=== PATIENT | male | born 1980 | race Caucasian/White ===

== ENCOUNTER 2018-11-13 20:54 | Inpatient (IN) | payer MEDICAID ==
[~2018-11-13] VITALS: Ht 182.9 cm; Wt 121.1 kg
[2018-11-13] MEDS: NACL 0.9% 1,000 ML IV SCH (02:00)
[2018-11-13 21:50] VITALS: BP 158/80
[2018-11-13] MEDS ORDERED: VANCOMYCIN 1,000 MG in DEXTROSE 5% 250 ML IV ONE (21:50)
--- NOTE | 2018-11-13 22:17 | NUR ---
PT BIB SELF FOR CELLULITIS TO RT LEG FOR 3 DAYS. PT STATES LEG HAS BEEN GETTING MORE RED SWOLLEN. +CMS. SWELLING TO LOWER EXTREMEITY. BLANCHABLE REDNESS. NO PMH
[2018-11-13] MEDS ORDERED: VANCOMYCIN 1,000 MG VIAL ONE (22:25)
--- NOTE | 2018-11-13 22:25 | NUR ---
PT AMBULATED FROM CHAIR B TO BED 04
[2018-11-13 22:29] LABS: BASOPHILS # (AUTO) 0.1 K/uL (0.00-0.22); BASOPHILS % (AUTO) 0.7 % (0.0-2.0); EOSINOPHILS # (AUTO) 0.1 K/uL (0-0.4); EOSINOPHILS % (AUTO) 1.4 % (0.0-4.0); HEMATOCRIT 43.2 % (36-52); HEMOGLOBIN 14.3 g/dL (12.0-18.0); LYMPHOCYTES # (AUTO) 1.6 K/uL (2.0-11.5); MEAN CORPUSCULAR HEMOGLOBIN 29 pg (27-31); MEAN CORPUSCULAR HGB CONC 33 g/dL (33-37); MEAN CORPUSCULAR VOLUME 86.6 fL (80-94); MONOCYTES # (AUTO) 0.8 K/uL (0.8-1.0); MONOCYTES % (AUTO) 10.7 % (1.7-9.3); NEUTROPHILS # (AUTO) 5.3 K/uL (1.8-7.7); NEUTROPHILS % (AUTO) 67.2 % (42.2-75.2); PLATELET COUNT (AUTO) 215 K/uL (140-450); RED BLOOD CELL COUNT(AUTO) 4.99 MIL/uL (4.20-6.10); RED CELL DISTRIBUTION WIDTH 14.1 % (11.6-13.7); WHITE BLOOD COUNT (AUTO) 7.9 K/uL (4.8-10.8)
[2018-11-13] MEDS ORDERED: MORPHINE SULFATE 2 MG/ML SYR IVP PRN (22:40)
[2018-11-13] MEDS ORDERED: ACETAMINOPHEN 325 MG TAB PO PRN (22:40)
[2018-11-13] MEDS ORDERED: ONDANSETRON 4 MG/2 ML VIAL IM/IVP PRN (22:40)
[2018-11-13] MEDS ORDERED: HYDROcodone/APAP 5/325 MG 1 TAB TAB PO PRN (22:40)
[2018-11-13] MEDS ORDERED: DOCUSATE SODIUM 100 MG GELCAP PO PRN (22:40)
--- NOTE | 2018-11-13 22:49 | NUR ---
xray at bedside
[2018-11-13 22:50] LABS: ALBUMIN 3.4 g/dL (3.4-5.0); ANION GAP 11.1 (8-16); CARBON DIOXIDE 27.6 mmol/L (21-32); POTASSIUM 3.7 mmol/L (3.5-5.1); TOTAL BILIRUBIN 0.4 mg/dL (0.0-1.0)
[2018-11-13] MEDS ORDERED: VANCOMYCIN PER PHARMACY MC PRN (23:05)
[2018-11-13 23:25] LABS: CHOL/HDL RATIO 6.4 (1-4.5); MAGNESIUM 2.1 mg/dL (1.8-2.4); PHOSPHORUS 4.8 mg/dL (2.5-4.9); THYROID STIMULATING HORMONE 1.62 uIU/mL (0.34-3.74)
--- NOTE | 2018-11-13 23:30 | NUR ---
PT RESTING IN BED ON CELL PHONE. VSS. WILL CONTINUE TO MONITOR.
[2018-11-14 00:06] LABS: APPEARANCE,URINE CLEAR (CLEAR); BILIRUBIN,URINE NEGATIVE (NEGATIVE); BLOOD, URINE NEGATIVE (NEGATIVE); COLOR,URINE YELLOW (YELLOW); LEUKOCYTE ESTERASE ,URINE NEGATIVE (NEGATIVE); NITRITE, URINE NEGATIVE (NEGATIVE); UGLUCOSE NEGATIVE (NEGATIVE)
[2018-11-14 00:07] LABS: RBC,URINE 0-5 /HPF (0-5); WBC,URINE 0-5 /HPF (0-5)
[2018-11-14 00:15] LABS: BARBITURATE, URINE NEG. ng/ml (NEG <=200); BENZODIAZEPINE, URINE NEG. ng/mL (NEG <=200); CANNABINOID, URINE NEG. ng/mL (NEG <=50); COCAINE, URINE NEG. ng/mL (NEG <=300); OPIATE, URINE NEG. ng/mL (NEG <=2000); PHENCYCLIDINE SCREEN,URINE NEG. ng/mL (NEG <=25)
--- NOTE | 2018-11-14 00:18 | NUR ---
PT RESTING IN BED WITH EYES CLOSED. VSS. WILL CONTINUE TO MONITOR.
--- NOTE | 2018-11-14 00:18 | NUR ---
Jean Marie canas in ED - 11/14/18 at 0019 by JUAN PT RESTING IN BED WITH EYES CLOSED. VSS. WILL CONTINUE TO MONITOR.
[2018-11-14 00:36] LABS: PROTHROMBIN TIME 9.2 secs (10.8-13.4)
--- NOTE | 2018-11-14 01:10 | NUR ---
RECEIVED REPORT FROM ER NURSE. PT ARRIVED AT WHEELCHAIR, PT TRANSFERRED TO BED, PT AWAKE ALERT COOPERATIVE, PERRLA 3MM, BRISK, PT BREATHING REGULARLY ON ROOM AIR LUNG SOUNDS CLEAR THROUGHOUT, HEART RATE REGULAR S1S2 PRESENT, CAP REFILL <3S, PULSES 2+ BILATERAL UPPER AND LOWER EXTREMITIES, ABDOMEN, SOFT, ROUND, NONDISTENDED, NONTENDER, BLADDER SOFT, ROUND, NONDISTENDED, NONTENDER, STRENGTH 5/5 BILATERAL UPPER AND LOWER EXTREMITIES, PT HAS LEFT AC 20 GAUGE RUNNING NS AT 140 ML/HR. SKIN INTACT, WARM, DRY, PT HAS RIGHT LEG INFLAMMATION AND NONPITTING EDEMA +1, HOB 30 DEGREES, SIDE RAILS UP X2, BED AT LOWEST POSITION.
--- NOTE | 2018-11-14 01:12 | NUR ---
Transfer of care and report given to WILL Hill
--- NOTE | 2018-11-14 01:12 | NUR ---
Patient will be admitted to care of Dr. Manning. Admited to Med Surge. Will go to room 105A. Belongings list completed. Report given to WILL Hill.
[2018-11-14] MEDS ORDERED: PIPERACILLIN/TAZOBACTAM 3.375 GM VIAL IV ONE ×2 (01:50→06:32)
[2018-11-14] MEDS: PIPERACILLIN/TAZOBACTAM 3.375 GM in DEXTROSE 5% 50 ML IV SCH ×2 (02:19→06:41)
--- NOTE | 2018-11-14 04:00 | NUR ---
PT REQUESTED SANDWICH. SANDWICH GIVEN PT SWALLOWED FOOD WITH NO PROBLEMS
[2018-11-14 06:00] VITALS: BP 133/69
[2018-11-14] MEDS: NACL 0.9% 1,000 ML IV SCH ×3 (06:40→20:05)
--- NOTE | 2018-11-14 06:58 | NUR ---
MEDICATIONS GIVEN. PT AT BED EYES CLOSED. BREATHING REGULARLY ON ROOM AIR
[2018-11-14 07:05] LABS: BASOPHILS % (AUTO) 0.5 % (0.0-2.0); EOSINOPHILS # (AUTO) 0.3 K/uL (0-0.4); EOSINOPHILS % (AUTO) 4.3 % (0.0-4.0); HEMOGLOBIN 13.4 g/dL (12.0-18.0); LYMPHOCYTES # (AUTO) 1.4 K/uL (2.0-11.5); MEAN CORPUSCULAR HEMOGLOBIN 29 pg (27-31); MEAN CORPUSCULAR HGB CONC 33 g/dL (33-37); MEAN CORPUSCULAR VOLUME 87.1 fL (80-94); MONOCYTES # (AUTO) 0.9 K/uL (0.8-1.0); MONOCYTES % (AUTO) 13.9 % (1.7-9.3); NEUTROPHILS # (AUTO) 3.6 K/uL (1.8-7.7); NEUTROPHILS % (AUTO) 58.3 % (42.2-75.2); PLATELET COUNT (AUTO) 181 K/uL (140-450); RED BLOOD CELL COUNT(AUTO) 4.71 MIL/uL (4.20-6.10); RED CELL DISTRIBUTION WIDTH 14.3 % (11.6-13.7); WHITE BLOOD COUNT (AUTO) 6.2 K/uL (4.8-10.8)
[2018-11-14 07:15] LABS: ANION GAP 11.1 (8-16); CARBON DIOXIDE 27.5 mmol/L (21-32); CREATININE 0.9 mg/dL (0.7-1.3); POTASSIUM 3.6 mmol/L (3.5-5.1)
[2018-11-14 07:25] LABS: CHOL/HDL RATIO 6.9 (1-4.5)
--- NOTE | 2018-11-14 07:30 | NUR ---
RECEIVED BEDSIDE REPORT FROM AUDIOMETRIST NURSE FOR CONTINUITY OF CARE. PATIENT IS SLEEPING ON BED AND SNORING HEARD, AROUSABLE TO VOICE. RESPIRATION EVEN AND UNLABORED ON RA. NO SIGNS OF DISTRESS NOTED. IV ON LAC 20G, CLEAN AND INTACT, INFUSING PER MD ORDER. REDNESS ON R LOW LEG NOTED, CERTIFIED CODING SPECIALIST AND WARM TO TOUCH, OTHERWISE SKIN INTACT AND DRY. PATIENT IS CONTINENT AND ABLE TO AMBULATE. SAFETY MEASURES IN PLACE. BED IN LOW POSITION AND CALL LIGHT WITHIN REACH.
--- NOTE | 2018-11-14 07:40 | NUR ---
CHANGE OF SHIFT GIVEN TO AM NURSE. PT AT STABLE CONDITION AT THIS TIME.
[2018-11-14 08:00] VITALS: BP 118/76
--- NOTE | 2018-11-14 08:13 | NUR ---
PATIENT HAS BEEN SCREENED AND CATEGORIZED LOW NUTRITION RISK. PATIENT WILL BE SEEN WITHIN 7 DAYS OF ADMISSION. 11/20/[address]
[2018-11-14] MEDS: VANCOMYCIN 1,500 MG in DEXTROSE 5% 500 ML IV SCH ×3 (08:59→23:00)
[2018-11-14] MEDS: LACTOBACILLUS RHAMNOSUS GG 1 EACH CAP PO SCH (08:59)
--- NOTE | 2018-11-14 09:02 | NUR ---
ADMINISTERED MEDS PER MD ORDER, PATIENT TOLERATED WELL. MEDS EDUCATION PROVIDED TO PATIENT AND PATIENT VERBALIZED UNDERSTANDING. PATIENT AWAKE AND RESTING ON BED. DENIED PAIN, SOB AND DIZZINESS. NO SIGNS OF DISTRESS NOTED. DISCUSSED PLAN OF CARE WITH PATIENT AND PATIENT SAID OK. SAFETY MEASURES IN PLACE. BED IN LOW POSITION AND CALL LIGHT WITHIN REACH. INSTRUCTED PATIENT TO USE THE CALL LIGHT FOR ANY ASSISTANCE AND PATIENT WAS AWARE.
--- NOTE | 2018-11-14 11:15 | NUR ---
PATIENT IS RESTING ON BED AT THIS TIME. DENIED PAIN, SOB AND DIZZINESS. NO SIGNS OF DISTRESS NOTED. SAFETY MEASURES IN PLACE. BED IN LOW POSITION AND CALL LIGHT WITHIN REACH. INSTRUCTED PATIENT TO USE THE CALL LIGHT FOR ANY ASSISTANCE AND PATIENT WAS AWARE.
--- NOTE | 2018-11-14 13:17 | NUR ---
HUNG A NEW BAG OF IVF, PATIENT AWAKE AND WATCHING TV ON BED AT THIS TIME. NO SIGNS OF DISTRESS NOTED. SAFETY MEASURES IN PLACE. BED IN LOW POSITION AND CALL LIGHT WITHIN REACH. INSTRUCTED PATIENT TO USE THE CALL LIGHT FOR ANY ASSISTANCE AND PATIENT WAS AWARE.
--- NOTE | 2018-11-14 15:22 | NUR ---
PATIENT IS RESTING ON BED AT THIS TIME. AROUSABLE TO VOICE. EVEN AND UNLABORED CHEST RISES ON RA NOTED. NO SIGNS OF DISTRESS NOTED. SAFETY MEASURES IN PLACE. BED IN LOW POSITION AND CALL LIGHT WITHIN REACH.
--- NOTE | 2018-11-14 15:59 | NUR ---
ADMINISTERED VANCOMYCIN VIA IVPB PER MD ORDER, PATIENT TOLERATED WELL. MED EDUCATION PROVIDED TO PATIENT AND PATIENT VERBALIZED UNDERSTANDING. PATIENT AWAKE AND WATCHING TV ON BED AT THIS TIME. NO SIGNS OF DISTRESS NOTED. SAFETY MEASURES IN PLACE. BED IN LOW POSITION AND CALL LIGHT WITHIN REACH. INSTRUCTED PATIENT TO USE THE CALL LIGHT FOR ANY ASSISTANCE AND PATIENT WAS AWARE.
[2018-11-14 16:00] VITALS: BP 121/71
--- NOTE | 2018-11-14 17:28 | NUR ---
PATIENT AWAKE AND WATCHING TV ON BED. DENIED PAIN, SOB AND DIZZINESS. RESPIRATION EVEN AND UNLABORED ON RA. NO SIGNS OF DISTRESS NOTED. SAFETY MEASURES IN PLACE. BED IN LOW POSITION AND CALL LIGHT WITHIN REACH. INSTRUCTED PATIENT TO USE THE CALL LIGHT FOR ANY ASSISTANCE AND PATIENT SAID OK.
--- NOTE | 2018-11-14 18:45 | NUR ---
PATIENT AWAKE AND TALKING TO BED B PATIENT. NO SIGNS OF DISTRESS NOTED. SAFETY MEASURES IN PLACE. BED IN LOW POSITION AND CALL LIGHT WITHIN REACH.
--- NOTE | 2018-11-14 19:21 | NUR ---
ENDORSED PATIENT AT BEDSIDE TO TOUR AGENT NURSE FOR CONTINUITY OF CARE. PATIENT AWAKE AND TALKING TO VISITORS BY BEDSIDE. NO SIGNS OF DISTRESS NOTED. PATIENT IS IN STABLE CONDITION. SAFETY MEASURES IN PLACE.
--- NOTE | 2018-11-14 19:22 | NUR ---
REPORT RECEIVED FROM AM NURSE AT BEDSIDE. PT IN STABLE CONDITION. AAOX4. INTRODUCED SELF TO PT. BOARD UPDATED. NO COMPLAINTS OF PAIN. NO SOB. AFEBRILE. PT IS AMBULATORY. CELLULITIS AREA MARKED WITH MARKER. IV SITE L AC 20G RUNNING NS@140ML/HR PATENT AND INTACT. SKIN WARM, DRY, AND INTACT WITH NO OPEN WOUNDS BUT RLE REDDENED WITH A BUG BITE. BED LOCKED IN LOW POSITION. CALL BARTLETT WITHIN REACH. SAFETY PRECAUTION IN PLACE. ALL NEEDS MET AT THIS TIME.
--- NOTE | 2018-11-14 20:08 | NUR ---
HEPARIN GIVEN SUBQ. PT TOLERATED WELL.
--- NOTE | 2018-11-14 22:00 | NUR ---
PT SLEEPING COMFORTABLY BUT AROUSABLE. NO S/S OF DISTRESS NOTED. WILL CONTINUE TO MONITOR.
--- NOTE | 2018-11-14 23:00 | NUR ---
BECKI NAVARRO AND RUNNING. PT TOLERATING WELL.
[2018-11-15] VITALS: BP 132/73
--- NOTE | 2018-11-15 01:30 | NUR ---
PT SLEEPING COMFORTABLY BUT AROUSABLE. NO S/S OF DISTRESS NOTED. NO COMPLAINTS OF PAIN. NO SOB. AFEBRILE. WILL CONTINUE TO MONITOR.
--- NOTE | 2018-11-15 03:00 | NUR ---
PT SLEEPING COMFORTABLY BUT AROUSABLE. NO S/S OF DISTRESS NOTED. NO COMPLAINTS OF PAIN. NO SOB. AFEBRILE. WILL CONTINUE TO MONITOR.
[2018-11-15] MEDS: NACL 0.9% 1,000 ML IV SCH ×3 (03:14→18:15)
[2018-11-15 06:08] LABS: T4 (THYROXINE) 11.2 ug/dL (4.5-12.0)
--- NOTE | 2018-11-15 07:12 | NUR ---
RECEIVED BEDSIDE REPORT FROM CLINICAL PHARMACIST NURSE FOR CONTINUITY OF CARE. PATIENT IS SLEEPING ON BED COMFORTABLY, AROUSABLE TO VOICE. RESPIRATION EVEN AND UNLABORED ON RA. NO SIGNS OF DISTRESS NOTED. IV ON LAC 20G, CLEAN AND INTACT, INFUSING PER MD ORDER. REDNESS ON R LOW LEG NOTED, ANALYTICAL STATISTICIAN AND WARM TO TOUCH, OTHERWISE SKIN INTACT AND DRY. PATIENT IS CONTINENT AND ABLE TO AMBULATE. SAFETY MEASURES IN PLACE. BED IN LOW POSITION AND CALL LIGHT WITHIN REACH.
[2018-11-15 07:28] LABS: BASOPHILS % (AUTO) 0.5 % (0.0-2.0); EOSINOPHILS # (AUTO) 0.3 K/uL (0-0.4); EOSINOPHILS % (AUTO) 4.7 % (0.0-4.0); HEMATOCRIT 40.4 % (36-52); HEMOGLOBIN 13.3 g/dL (12.0-18.0); LYMPHOCYTES # (AUTO) 1.6 K/uL (2.0-11.5); LYMPHOCYTES % (AUTO) 26.5 % (20.5-51.1); MEAN CORPUSCULAR HEMOGLOBIN 29 pg (27-31); MEAN CORPUSCULAR HGB CONC 33 g/dL (33-37); MEAN CORPUSCULAR VOLUME 86.8 fL (80-94); MONOCYTES # (AUTO) 0.6 K/uL (0.8-1.0); MONOCYTES % (AUTO) 10.7 % (1.7-9.3); NEUTROPHILS # (AUTO) 3.4 K/uL (1.8-7.7); NEUTROPHILS % (AUTO) 57.6 % (42.2-75.2); PLATELET COUNT (AUTO) 194 K/uL (140-450); RED BLOOD CELL COUNT(AUTO) 4.66 MIL/uL (4.20-6.10); RED CELL DISTRIBUTION WIDTH 14.2 % (11.6-13.7); WHITE BLOOD COUNT (AUTO) 5.9 K/uL (4.8-10.8)
[2018-11-15 08:00] VITALS: BP 129/72
[2018-11-15 08:06] LABS: CARBON DIOXIDE 28.1 mmol/L (21-32); POTASSIUM 4.1 mmol/L (3.5-5.1)
[2018-11-15 08:07] LABS: CREATININE 0.8 mg/dL (0.7-1.3)
[2018-11-15] MEDS: LACTOBACILLUS RHAMNOSUS GG 1 EACH CAP PO SCH (08:31)
--- NOTE | 2018-11-15 08:35 | NUR ---
ADMINISTERED MEDS PER MD ORDER, PATIENT TOLERATED WELL. MED EDUCATION PROVIDED TO PATIENT AND PATIENT VERBALIZED UNDERSTANDING. PATIENT AWAKE AND RESTING ON BED AT THIS TIME. DENIED PAIN, SOB AND DIZZINESS. NO SIGNS OF DISTRESS NOTED. SAFETY MEASURES IN PLACE. BED IN LOW POSITION AND CALL LIGHT WITHIN REACH. INSTRUCTED PATIENT TO USE THE CALL LIGHT FOR ANY ASSISTANCE AND PATIENT WAS AWARE.
--- NOTE | 2018-11-15 08:39 | NUR ---
AWAITING FOR VANCOMYCIN TROUGH RESULT TO [facility]ANG VANCOMYCIN.
[2018-11-15] MEDS: VANCOMYCIN 1,500 MG in DEXTROSE 5% 500 ML IV SCH ×2 (09:09→15:50)
--- NOTE | 2018-11-15 09:09 | NUR ---
RECEIVED VANCOMYCIN TROUGH RESULT 12.9 AND VERIFIED WITH PAHARMACIST THAT IT'S OK TO ADMINISTER AM DOSE. ADMINISTERED MED PER MD ORDER, PATIENT IS RESTING ON BED AT THIS TIME. DENIED PAIN, SOB AND DIZZINESS. NO SIGNS OF DISTRESS NOTED. SAFETY MEASURES IN PLACE. BED IN LOW POSITION AND CALL LIGHT WITHIN REACH. INSTRUCTED PATIENT TO USE THE CALL LIGHT FOR ANY ASSISTANCE AND PATIENT WAS AWARE.
[2018-11-15 10:42] LABS: PHOSPHORUS 3.7 mg/dL (2.5-4.9)
--- NOTE | 2018-11-15 11:44 | NUR ---
PATIENT IS AWAKE AND WATCHING TV ON BED AT THIS TIME. DENIED PAIN, SOB AND DIZZINESS. NO SIGNS OF DISTRESS NOTED. SAFETY MEASURES IN PLACED. BED IN LOW POSITION AND CALL LIGHT WITHIN REACH. INSTRUCTED PATIENT TO USE THE CALL LIGHT FOR ANY ASSISTANCE AND PATIENT WAS AWARE.
--- NOTE | 2018-11-15 13:45 | NUR ---
PATIENT IS RESTING ON BED AT THIS TIME. NO SIGNS OF DISTRESS NOTED. SAFETY MEASURES IN PLACE. BED IN LOW POSITION AND CALL LIGHT WITHIN REACH.
--- NOTE | 2018-11-15 15:50 | NUR ---
ADMINISTERED VANCOMYCIN VIA IVPB PER MD ORDER, PATIENT IS AWAKE AND RESTING ON BED AT THIS TIME. DENIED PAIN, SOB AND DIZZINESS. NO SIGNS OF DISTRESS NOTED. SAFETY MEASURES IN PLACE. BED IN LOW POSITION AND CALL LIGHT WITHIN REACH. INSTRUCTED PATIENT TO USE THE CALL LIGHT FOR ANY ASSISTANCE AND PATIENT WAS AWARE.
[2018-11-15 16:00] VITALS: BP 138/71
--- NOTE | 2018-11-15 17:18 | NUR ---
PATIENT IS AWAKE AND WATCHING TV ON BED AT THIS TIME. PATIENT SAID "I MIGHT WALK AROUND THE HALLWAY AFTER DINNER. I FEEL LIKE WALK AROUND." DENIED PAIN, SOB AND DIZZINESS. NO SIGNS OF DISTRESS NOTED. SAFETY MEASURES IN PLACED. BED IN LOW POSITION AND CALL LIGHT WITHIN REACH. INSTRUCTED PATIENT TO USE THE CALL LIGHT FOR ANY ASSISTANCE AND PATIENT WAS AWARE.
--- NOTE | 2018-11-15 18:15 | NUR ---
PATIENT AWAKE AND WATCHING TV ON BED AT THIS TIME. NO SIGNS OF DISTRESS NOTED. SAFETY MEASURES IN PLACE. BED IN LOW POSITION AND CALL LIGHT WITHIN REACH. INSTRUCTED PATIENT TO USE THE CALL LIGHT FOR ANY ASSISTANCE AND PATIENT WAS AWARE.
--- NOTE | 2018-11-15 19:17 | NUR ---
ENDORSED PATIENT AT BEDSIDE TO PIPE BUFFER NURSE FOR CONTINUITY OF CARE. PATIENT IS RESTING ON BED, AROUDABLE TO VOICE. EVEN AND UNLABORED CHEST RISES ON RA NOTED. NO SIGNS OF DISTRESS NOTED. PATIENT IS IN STABLE CONDITION. SAFETY MEASURES IN PLACE.
--- NOTE | 2018-11-15 19:18 | NUR ---
RECEIVED BEDSIDE REPORT FROM SIDE FRAMER NURSE FOR CONTINUITY OF CARE. PATIENT IS SLEEPING ON BED COMFORTABLY, AROUSABLE TO VOICE. RESPIRATION EVEN AND UNLABORED ON RA. NO SIGNS OF DISTRESS NOTED. IV ON LAC 20G, CLEAN AND INTACT, INFUSING PER MD ORDER. CELLULITIS ON R LOWER LEG NOTED, REDNESS NOTED, WARM TO TOUCH, OTHERWISE SKIN INTACT AND DRY. PATIENT IS CONTINENT AND ABLE TO AMBULATE. SAFETY MEASURES IN PLACE. BED IN LOW POSITION AND CALL LIGHT WITHIN REACH.
[2018-11-15 20:00] VITALS: BP 134/64
--- NOTE | 2018-11-15 22:15 | NUR ---
PT WENT TO THE BATHROOM, VOIDED; STEADY GAIT WILL CONTINUE TO MONITOR
[2018-11-16] MEDS: VANCOMYCIN 1,500 MG in DEXTROSE 5% 500 ML IV SCH ×2 (00:13→09:47)
--- NOTE | 2018-11-16 00:13 | NUR ---
PT GIVEN VANCOMYCIN INFORMED HIM SIDE EFFECTS, PT VERBALIZED UNDERSTANDING
[2018-11-16] MEDS: NACL 0.9% 1,000 ML IV SCH ×2 (00:41→07:33)
--- NOTE | 2018-11-16 01:11 | NUR ---
PT SLEEPING ON BED COMFORTABLY, NO COMPLAINTS OF PAIN WILL CONTINUE TO MONITOR
--- NOTE | 2018-11-16 02:00 | NUR ---
CHECKED ON PATIENT; NO COMPLAINTS AT THISTIME
[2018-11-16 04:00] VITALS: BP 135/65
--- NOTE | 2018-11-16 07:04 | NUR ---
AWAKE, ALERT ORIENTED X 4. AMBULATORY PT IN STABLE CONDITION AT THIS TIME. NO COMPLAINTS OF PAIN
--- NOTE | 2018-11-16 07:15 | NUR ---
RECEIVED PT FROM DRIVER TRAINEE NURSEGIANCARLO, PT IS ASLEEP AND LYING ON THE BED WITH AN IV LINE ON THE LEFT AC G.20 AND IVF IS NS AT 140ML/HR, RESPIRATION IS EVEN AND SIDE RIALS ARE UP AND CALL LIGHT WITHIN REACH, PT HAS A RT LEG CELLULITIS, MARKED AND NOTED, NO SIGN OF DISTRESS NOTED AND WILL MONITOR PT.
[2018-11-16 07:51] LABS: ANION GAP 14.6 (8-16); CARBON DIOXIDE 26.4 mmol/L (21-32); CREATININE 0.8 mg/dL (0.7-1.3)
[2018-11-16] MEDS: LACTOBACILLUS RHAMNOSUS GG 1 EACH CAP PO SCH (09:47)
--- NOTE | 2018-11-16 09:53 | NUR ---
PT IS AWAKE AND LYING ON THE BED, SUBQ, IV AND ORAL MEDICATIONS WERE GIVEN AND PT TOLERATED IT. WILL MONITOR PT.
[2018-11-16] MEDS ORDERED: CLIN-178 PO ×2 (10:17→10:46)
[2018-11-16] MEDS ORDERED: LACT1.4C PO ×2 (10:17→10:46)
--- NOTE | 2018-11-16 13:15 | NUR ---
DISCHARGED PT ACCOMPANIED BY FRIEND ,WALKED THROUGH THE LOBBY, DISCHARGED TEACHINGS, MEDICATION INSTRUCTION AND APPOINTMENT SCHEDULED ON AT 1330 WAS REMINDED TO THE PT AND PT VERBALIZED UNDERSTANDING.
== END 2018-11-16 13:15 | disposition home or self-care (01) | DRG 720 ==
LOC: MED 20:54 → MTU 22:42
PROVIDERS: ADMIT Family Medicine; ATTEND Family Medicine
DX: A41.9 Sepsis, unspecified organism (principal); E87.1 Hypo-osmolality and hyponatremia; L03.115 Cellulitis of right lower limb; E66.9 Obesity, unspecified; I10 Essential (primary) hypertension; F15.10 Other stimulant abuse, uncomplicated; F17.210 Nicotine dependence, cigarettes, uncomplicated; E78.5 Hyperlipidemia, unspecified; T43.625A Adverse effect of amphetamines, initial encounter; B95.5 Unspecified streptococcus as the cause of diseases classified elsewhere; B95.61 Methicillin susceptible Staphylococcus aureus infection as the cause of diseases classified elsewhere; Z68.36 Body mass index [BMI] 36.0-36.9, adult; Y92.89 Other specified places as the place of occurrence of the external cause
CPT/HCPCS: 36415; 71045; 80048; 80053; 80202; 80305; 81001; 82150; 83036; 83605; 83690; 83735; 83880; 84100; 84436; 84443; 84484; 85025; 85610; 85730; 87040; 87081; 87086; 99285; J1644; J2543; J3370; J7030; J7060

== ENCOUNTER 2019-03-06 18:37 | Inpatient (IN) | payer MEDICAID, OTHER ==
[~2019-03-06] VITALS: Ht 182.9 cm; Wt 131.5 kg
[~2019-03-06 18:37] MED LIST: CLIN-178 PO; LACT1.4C PO
[2019-03-06 18:55] VITALS: BP 136/77
--- NOTE | 2019-03-06 18:59 | NUR ---
PT AMB TO BED 10
--- NOTE | 2019-03-06 19:03 | NUR ---
Patient ambulated to bed 6. RN evaluating patient at bedside.
--- NOTE | 2019-03-06 19:07 | NUR ---
38 Y/O MALE C/O CELLULITIS X LAST NIGHT. PATIENT STATES, " I THINK I GOT BITTEN BY A SPIDER BECAUSE MY MOTHER NOTICED LITTLE RED DOTS LAST NIGHT AND THIS MORNING, MY FOOT AND LEG WAS COMPLETELY SWOLLEN." PAIN IS A 10/10 BURNING, THROBBING PAIN. RIGHT FOOT EXHIBITS RED; SWOLLEN EDEMATOUS COMPARED TO THE LEFT FOOT.; NONPITTING; <3 CAPILLARY REFILL. +2 SECONDS PEDAL PULSES. ERMD MADE AWARE. SIDE RAILSX1. WILL CONTINUE TO MONITOR. H- SHERMAN WAS ADMITTED IN NOVEMBER FOR SAME LEG CELLULITIS RX:SHERMAN NKDA
--- NOTE | 2019-03-06 19:07 | NUR ---
REPORT GIVEN TO JENNIFER SOLIS
[2019-03-06] MEDS ORDERED: NACL 0.9% 1,000 ML IV SCH (19:47)
[2019-03-06] MEDS ORDERED: AMPICILLIN/SULBACTAM 3 GM in NACL 0.9% MINI-BAG PLUS 100 ML IV ONE (19:50)
[2019-03-06] MEDS ORDERED: KETOROLAC 30 MG/ML VIAL IVP ONE (19:50)
[2019-03-06] MEDS ORDERED: AMPICILLIN/SULBACTAM 3 GM VIAL ONE (19:56)
--- NOTE | 2019-03-06 20:19 | NUR ---
PLACED IV 22 GAUGE RIGHT AC. NORMAL SALINE 1000ML RUNNING.
[2019-03-06 20:25] LABS: BASOPHILS % (AUTO) 0.3 % (0.0-2.0); EOSINOPHILS % (AUTO) 0.5 % (0.0-4.0); HEMATOCRIT 42.8 % (36-52); HEMOGLOBIN 14.2 g/dL (12.0-18.0); LYMPHOCYTES # (AUTO) 0.7 K/uL (2.0-11.5); MEAN CORPUSCULAR HEMOGLOBIN 29 pg (27-31); MEAN CORPUSCULAR HGB CONC 33 g/dL (33-37); MEAN CORPUSCULAR VOLUME 86.6 fL (80-94); MONOCYTES # (AUTO) 0.6 K/uL (0.8-1.0); MONOCYTES % (AUTO) 5.5 % (1.7-9.3); NEUTROPHILS # (AUTO) 8.8 K/uL (1.8-7.7); NEUTROPHILS % (AUTO) 86.7 % (42.2-75.2); PLATELET COUNT (AUTO) 136 K/uL (140-450); RED BLOOD CELL COUNT(AUTO) 4.94 MIL/uL (4.20-6.10); RED CELL DISTRIBUTION WIDTH 14.2 % (11.6-13.7); WHITE BLOOD COUNT (AUTO) 10.1 K/uL (4.8-10.8)
[2019-03-06 20:37] LABS: ANION GAP 11.5 (8-16); CARBON DIOXIDE 27.2 mmol/L (21-32); POTASSIUM 3.7 mmol/L (3.5-5.1)
--- NOTE | 2019-03-06 21:33 | NUR ---
NOTED RASH ON RIGHT LEG. DR. LEMUS MADE AWARE.
--- NOTE | 2019-03-06 21:33 | NUR ---
DR. LEMUS AT BEDSIDE.
[2019-03-06] MEDS ORDERED: ACETAMINOPHEN 325 MG TAB PO PRN (21:40)
[2019-03-06] MEDS ORDERED: ONDANSETRON 4 MG/2 ML VIAL IM/IVP PRN (21:40)
[2019-03-06] MEDS ORDERED: HYDROcodone/APAP 5/325 MG 1 TAB TAB PO PRN (21:40)
[2019-03-06] MEDS ORDERED: DOCUSATE SODIUM 100 MG GELCAP PO PRN (21:40)
[2019-03-06] MEDS ORDERED: diphenhydrAMINE 50 MG/ML VIAL IVP SCH (21:50)
[2019-03-06] MEDS ORDERED: CLINDAMYCIN 600 MG/4 ML VIAL ONE (21:57)
[2019-03-06] MEDS ORDERED: diphenhydrAMINE 50 MG/ML VIAL ONE (21:57)
--- NOTE | 2019-03-06 22:19 | NUR ---
ADMINISTERED BENADRYL 50MG VIA IVP. Addendum: 03/06/19 at [address] LEMUS'S FLOOR ORDERS
--- NOTE | 2019-03-06 22:19 | NUR ---
ADMINISTERED CLEOCIN 600MG WITH DEXTROSE 5% IN 50ML; RATE 100ML VIA IVP. PER DR. LEMUS'S FLOOR ORDERS. WILL CONTINUE TO MONITOR.
[2019-03-06 22:28] LABS: MAGNESIUM 2.2 mg/dL (1.8-2.4); PHOSPHORUS 2.5 mg/dL (2.5-4.9); THYROID STIMULATING HORMONE 2.21 uIU/mL (0.34-3.74)
[2019-03-06 22:41] LABS: PROTHROMBIN TIME 9.5 secs (10.8-13.4)
[2019-03-06 22:53] LABS: TOTAL BILIRUBIN 0.3 mg/dL (0.0-1.0)
[2019-03-06] MEDS ORDERED: MULTIVITAMIN-12 10 ML in NACL 0.9% 1,000 ML IV SCH (23:01)
[2019-03-06 23:03] LABS: BILIRUBIN,DIRECT 0.1 mg/dL (0.0-0.3)
[2019-03-06] MEDS ORDERED: LORazepam 2 MG/ML VIAL IVP PRN (23:05)
[2019-03-06 23:15] VITALS: BP 114/57
--- NOTE | 2019-03-06 23:15 | NUR ---
Patient will be admitted to care of DR. CALLE. Admited to TELE. Will go to room 105 B. Belongings list completed. Report to WILL YANCEY.
--- NOTE | 2019-03-06 23:30 | NUR ---
RECEIVED PT FROM ER WITH THE DX OF RT LOWER LEG CELLULITIS,SWELLING AND REDDNESS PRESENT,PT ALERT AND ORIENTED X 4 CAME FROM HOME,RESP EVEN AND EASY SATS 98% IN ROOM AIR,VITAL SIGN WNL, DENIES ANY PAIN AT THIS TIME, SR ON TEXTILE KNITTER, NS@160CC/HR STARTED ON LT AC, INTACT AND PATENT, LEVAQUIN IVPB GIVEN, CALL LIGHT ON REACH.
[2019-03-06] MEDS ORDERED: MAG SULF 2000 MG/WATER PREMIX 50 ML IV SCH (23:45)
[2019-03-06] MEDS: FOLIC ACID 5 MG/ML SYR IV SCH (23:45)
[2019-03-06] MEDS ORDERED: THIAMINE 200 MG/2 ML VIAL IM SCH (23:55)
[2019-03-07] MEDS: NACL 0.9% 1,000 ML IV SCH ×3 (00:11→17:31)
--- NOTE | 2019-03-07 00:30 | NUR ---
INSTRUCTED PT HE NEED FOR URINE SPECIMEN. URINAL PROVIDED. VERBALIZED UNDERSTANDING.
[2019-03-07] MEDS: LEVOFLOXACIN 500 MG/D5W PREMIX 100 ML IV SCH ×2 (00:35→20:44)
[2019-03-07] MEDS: chlordiazePOXIDE 25 MG CAP PO SCH ×5 (00:36→23:26)
[2019-03-07] MEDS: CLINDAMYCIN 600 MG in DEXTROSE 5% 50 ML IV SCH ×5 (00:49→23:27)
--- NOTE | 2019-03-07 02:30 | NUR ---
MADE ROUNDS. PT ASLEEP. NO S/S OF ANY PAIN NOR DISCOMFORT NOTED.
[2019-03-07 05:00] VITALS: BP 116/70
[2019-03-07] MEDS ORDERED: CLINDAMYCIN 600 MG/4 ML VIAL ONE (05:44)
[2019-03-07 07:22] LABS: BASOPHILS % (AUTO) 0.4 % (0.0-2.0); EOSINOPHILS # (AUTO) 0.1 K/uL (0-0.4); EOSINOPHILS % (AUTO) 1.2 % (0.0-4.0); HEMOGLOBIN 12.6 g/dL (12.0-18.0); LYMPHOCYTES # (AUTO) 0.8 K/uL (2.0-11.5); LYMPHOCYTES % (AUTO) 11.2 % (20.5-51.1); MEAN CORPUSCULAR HEMOGLOBIN 29 pg (27-31); MEAN CORPUSCULAR HGB CONC 33 g/dL (33-37); MEAN CORPUSCULAR VOLUME 86.9 fL (80-94); MONOCYTES # (AUTO) 0.5 K/uL (0.8-1.0); MONOCYTES % (AUTO) 6.6 % (1.7-9.3); NEUTROPHILS # (AUTO) 5.8 K/uL (1.8-7.7); NEUTROPHILS % (AUTO) 80.6 % (42.2-75.2); PLATELET COUNT (AUTO) 119 K/uL (140-450); RED BLOOD CELL COUNT(AUTO) 4.38 MIL/uL (4.20-6.10); RED CELL DISTRIBUTION WIDTH 13.9 % (11.6-13.7); WHITE BLOOD COUNT (AUTO) 7.2 K/uL (4.8-10.8)
[2019-03-07 07:34] LABS: ANION GAP 10.1 (8-16); CARBON DIOXIDE 24.7 mmol/L (21-32); CREATININE 0.9 mg/dL (0.7-1.3); POTASSIUM 3.8 mmol/L (3.5-5.1)
--- NOTE | 2019-03-07 07:34 | NUR ---
PT JUST VOIDED. SPECIMEN AT BEDSIDE. AM NURSE AWARE. WILL SEND TO LAB. ENDORSED PT IN STABLE CONDITION TO AM NURSE.
--- NOTE | 2019-03-07 07:39 | NUR ---
RECEIVED BEDSIDE REPORT FROM NIGHTSHIFT NURSE. PT RESTING IN BED. ABLE TO MAKE NEEDS KNOWN. RESPIRATIONS EVEN AND UNLABORED WITH NO SOB OR RESPIRATORY DISTRESS. SKIN WARM AND DRY TO TOUCH. IV SITE IN LAC 22G IS CLEAN, DRY, AND INTACT. SAFETY MEASURES IN PLACE. WILL CONTINUE TO MONITOR
[2019-03-07 08:00] VITALS: BP 148/82
--- NOTE | 2019-03-07 08:02 | NUR ---
PATIENT HAS BEEN SCREENED AND CATEGORIZED MODERATE NUTRITION RISK. PATIENT WILL BE SEEN WITHIN 3-5 DAYS OF ADMISSION. 03/09/19 03/11/[address]
[2019-03-07] MEDS: FAMOTIDINE 20 MG/2 ML VIAL IV SCH ×2 (08:22→20:44)
--- NOTE | 2019-03-07 08:22 | NUR ---
ADMINISTERED SCHED MED PRESCRIBED PER MD ORDER. PT TOLERATED WELL. MEDICATION EDUCATION PERFORMED. PT VERBALIZED UNDERSTANDING. SAFETY MEASURES IN PLACE. WILL CONTINUE TO MONITOR
[2019-03-07 08:24] LABS: PHOSPHORUS 2.3 mg/dL (2.5-4.9)
[2019-03-07 08:48] LABS: CHOL/HDL RATIO 17.7 (1-4.5)
[2019-03-07] MEDS ORDERED: FOLIC ACID 1 MG TAB PO SCH (09:00)
[2019-03-07] MEDS ORDERED: ATORVASTATIN 20 MG TAB PO SCH (09:00)
[2019-03-07] MEDS ORDERED: MULTIVITAMIN 1 TAB PO SCH (09:00)
[2019-03-07] MEDS ORDERED: THIAMINE 100 MG TAB PO SCH (09:00)
[2019-03-07] MEDS ORDERED: LACTOBACILLUS RHAMNOSUS GG 1 EACH CAP PO SCH (09:00)
[2019-03-07] MEDS ORDERED: MULTIVITAMIN-12 10 ML, THIAMINE 100 MG, MAGNESIUM SULFATE 50% 2,000 MG, FOLIC ACID 1 MG... IV SCH ×5 (10:00)
[2019-03-07 10:04] LABS: APPEARANCE,URINE CLEAR (CLEAR); BILIRUBIN,URINE NEGATIVE (NEGATIVE); BLOOD, URINE TRACE-I (NEGATIVE); COLOR,URINE YELLOW (YELLOW); LEUKOCYTE ESTERASE ,URINE NEGATIVE (NEGATIVE); NITRITE, URINE NEGATIVE (NEGATIVE); UGLUCOSE NEGATIVE (NEGATIVE)
--- NOTE | 2019-03-07 10:16 | NUR ---
HOURLY ROUNDING. PT RESTING IN BED UPON ARRIVAL. ABLE TO MAKE NEEDS KNOWN. RESPIRATIONS EVEN AND UNLABORED WITH NO SOB OR RESPIRATORY DISTRESS. SKIN WARM AND DRY TO TOUCH. SAFETY MEASURES IN PLACE. WILL CONTINUE TO MONITOR
[2019-03-07 10:35] LABS: BARBITURATE, URINE NEG. ng/ml (NEG <=200); BENZODIAZEPINE, URINE NEG. ng/mL (NEG <=200); CANNABINOID, URINE NEG. ng/mL (NEG <=50); COCAINE, URINE NEG. ng/mL (NEG <=300); OPIATE, URINE NEG. ng/mL (NEG <=2000); PHENCYCLIDINE SCREEN,URINE NEG. ng/mL (NEG <=25)
[2019-03-07 10:59] LABS: RBC,URINE 0-5 /HPF (0-5); WBC,URINE 0-5 /HPF (0-5)
--- NOTE | 2019-03-07 11:30 | NUR ---
ADMINISTERED MEDICATION PRESCRIBED PER MD ORDER. PT TOLERATED WELL. MEDICATION EDUCATION PERFORMED. SAFETY MEASURES IN PLACE.
--- NOTE | 2019-03-07 12:52 | NUR ---
ADMINISTERED MEDICATION PRESCRIBED PER MD ORDER. PT TOLERATED WELL. MEDICATION EDUCATION PERFORMED. SAFETY MEASURES IN PLACE.
[2019-03-07] MEDS ORDERED: SODIUM PHOSPHATE 15 MMOLE in NACL 0.9% 250 ML IV ONE (15:35)
[2019-03-07 16:00] VITALS: BP 121/56
--- NOTE | 2019-03-07 16:30 | NUR ---
PT ASLEEP. RESPONSIVE TO VERBAL AND TACTILE STIMULI. ABLE TO MAKE NEEDS KNOWN. RESPIRATIONS EVEN AND UNLABORED WITH NO SOB OR RESPIRATORY DISTRESS. SKIN WARM AND DRY TO TOUCH. SAFETY MEASURES IN PLACE. WILL CONTINUE TO MONITOR
[2019-03-07] MEDS ORDERED: chlordiazePOXIDE 25 MG CAP ONE (17:12)
--- NOTE | 2019-03-07 19:10 | NUR ---
RECEIVED BEDSIDE REPORT FROM DAY SHIFT NURSE. PATIENT IS AWAKE, ALERT, AND COOPERATIVE. RESPIRATION EVEN UNLABORED ON ROOM AIR. NO DISTRESS NOTED. SKIN IS WARM AND DRY. RIGHT LOWER LEG CELLULITIS NOTED. IV PATENT AND INTACT. PLAN OF CARE WAS DISCUSSED. ALL SAFETY MEASURES IN PLACE. BED IS AT LOW POSITION. CALL LIGHT WITHIN REACH AND VERBALIZES ITS USE. WILL CONTINUE TO MONITOR.
--- NOTE | 2019-03-07 19:25 | NUR ---
ENDORSED AT BEDSIDE TO NIGHTSHIFT NURSE. PT RESTING IN BED. RESPIRATIONS EVEN AND UNLABORED WITH NO SOB OR RESPIRATORY DISTRESS. PT IS STABLE.
--- NOTE | 2019-03-07 20:05 | NUR ---
INITIAL ASSESSMENT DONE. RIGHT LEG CELLULITIS NOTED INSTRUCT PATIENT TO ELEVATE HIS FOOT TO REDUCE SWELLING. VITALS WERE TAKEN. PATIENT IN STABLE CONDITION. NO DISTRESS NOTED. WILL CONTINUE TO MONITOR.
--- NOTE | 2019-03-07 20:45 | NUR ---
ALL SCHEDULED MEDS WERE GIVEN PER ORDER. PATIENT COMPLAINED OF LEG PAIN 09/16. PRN PAIN MED ADMINISTERED PER ORDER. WILL CONTINUE TO MONITOR.
--- NOTE | 2019-03-07 22:30 | NUR ---
CHECKED PATIENT. PATIENT SLEEPING RESPIRATION EVEN UNLABORED ON ROOM AIR. NO DISTRESS NOTED. WILL CONTINUE TO MONITOR.
[2019-03-07] MEDS: FOLIC ACID 5 MG/ML SYR IV SCH (23:26)
[2019-03-08] VITALS: BP 117/79
--- NOTE | 2019-03-08 00:01 | NUR ---
VITALS WERE TAKEN. PATIENT IN STABLE CONDITION. ALL SCHEDULED MEDS WERE GIVEN PER ORDER. WILL CONTINUE TO MONITOR.
--- NOTE | 2019-03-08 01:33 | NUR ---
PATIENT ACCIDENTALLY PULLED HIS IV. NO ACTIVE BLEEDING SEEN. CANULA TIP INTACT. WILL CONTINUE TO MONITOR.
--- NOTE | 2019-03-08 04:00 | NUR ---
CHECKED PATIENT. PATIENT IS SLEEPING RESPIRATION EVEN UNLABORED ON ROOM AIR. NO DISTRESS NOTED. WILL CONTINUE TO MONITOR.
[2019-03-08] MEDS: NACL 0.9% 1,000 ML IV SCH (04:31)
[2019-03-08] MEDS: CLINDAMYCIN 600 MG in DEXTROSE 5% 50 ML IV SCH (05:08)
[2019-03-08] MEDS: chlordiazePOXIDE 25 MG CAP PO SCH (05:09)
--- NOTE | 2019-03-08 06:56 | NUR ---
ENDORSED PATIENT TO DAY SHIFT NURSE. PATIENT IN STABLE CONDITION.
--- NOTE | 2019-03-08 07:01 | NUR ---
RECEIVED BEDSIDE REPORT FROM NIGHTSHIFT NURSE. PT ASLEEP IN BED UPON ARRIVAL. RESPIRATIONS EVEN AND UNLABORED WITH NO SOB OR RESPIRATORY DISTRESS. ABLE TO MAKE NEEDS KNOWN. SKIN WARM AND DRY TO TOUCH. IV SITE IN LAC 22G IS CLEAN, DRY, AND INTACT. SAFETY MEASURES IN PLACE. WILL CONTINUE TO MONITOR.
[2019-03-08 07:14] LABS: BASOPHILS # (AUTO) 0.1 K/uL (0.00-0.22); BASOPHILS % (AUTO) 1.1 % (0.0-2.0); EOSINOPHILS # (AUTO) 0.1 K/uL (0-0.4); HEMATOCRIT 37.4 % (36-52); HEMOGLOBIN 12.4 g/dL (12.0-18.0); LYMPHOCYTES # (AUTO) 1.2 K/uL (2.0-11.5); LYMPHOCYTES % (AUTO) 16.7 % (20.5-51.1); MEAN CORPUSCULAR HEMOGLOBIN 29 pg (27-31); MEAN CORPUSCULAR HGB CONC 33 g/dL (33-37); MEAN CORPUSCULAR VOLUME 86.8 fL (80-94); MONOCYTES # (AUTO) 0.7 K/uL (0.8-1.0); MONOCYTES % (AUTO) 9.6 % (1.7-9.3); NEUTROPHILS % (AUTO) 71.6 % (42.2-75.2); PLATELET COUNT (AUTO) 149 K/uL (140-450); RED BLOOD CELL COUNT(AUTO) 4.31 MIL/uL (4.20-6.10); RED CELL DISTRIBUTION WIDTH 14.3 % (11.6-13.7)
[2019-03-08 07:24] LABS: MAGNESIUM 2.1 mg/dL (1.8-2.4); PHOSPHORUS 3.8 mg/dL (2.5-4.9)
[2019-03-08 08:00] VITALS: BP 112/63
--- NOTE | 2019-03-08 08:15 | NUR ---
PT IS AWARE OF DISCHARGE AND WANTS TO GO HOME AROUND 9AM.
[2019-03-08] MEDS ORDERED: CLIN-178 PO (08:17)
[2019-03-08] MEDS ORDERED: ASCO1CAP75 PO (08:20)
[2019-03-08] MEDS ORDERED: LEVO750T2 PO (08:20)
[2019-03-08 08:48] LABS: ANION GAP 14.1 (8-16); CREATININE 0.8 mg/dL (0.7-1.3); POTASSIUM 4.1 mmol/L (3.5-5.1)
[2019-03-08 08:58] VITALS: BP 136/78
--- NOTE | 2019-03-08 09:15 | NUR ---
WENT OVER DC INSTRUCTIONS WITH PT. PT SIGNED APPROPRIATE FORMS. ID BAND AND INTACT IV CANNLA REMOVED. PT CHANGED INTO OWN CLOTHES. PT REFUSED VACCINES. PT HAD PRESCRIPTION SENT TO PHARMACY. PT GATHERED ALL OF HIS BELONGINGS AND WAS WHEELED OUT TO PRIVATE VEHICLE TO GO HOME. PT IS STABLE.
== END 2019-03-08 09:15 | disposition home or self-care (01) | DRG 603 ==
LOC: MED 18:37 → MTU 21:48
PROVIDERS: ADMIT General Practice; ATTEND General Practice
DX: L03.115 Cellulitis of right lower limb (principal); E44.0 Moderate protein-calorie malnutrition; E87.1 Hypo-osmolality and hyponatremia; F10.239 Alcohol dependence with withdrawal, unspecified; F17.210 Nicotine dependence, cigarettes, uncomplicated; I10 Essential (primary) hypertension; E78.5 Hyperlipidemia, unspecified; E66.9 Obesity, unspecified; E83.39 Other disorders of phosphorus metabolism; Z83.3 Family history of diabetes mellitus; Z91.19 Patient's noncompliance with other medical treatment and regimen; Z82.3 Family history of stroke; Z68.38 Body mass index [BMI] 38.0-38.9, adult
CPT/HCPCS: 36415; 71045; 76881; 80048; 80076; 80305; 81001; 82140; 83036; 83605; 83735; 83880; 84100; 84134; 84443; 85025; 85610; 85651; 85730; 86140; 87040; 87081; 87086; 93925; 93970; 96365; 96367; 96375; 99285; A9153; G0482; J0295; J1200; J1644; J1885; J1956; J3411; J3475; J3490; J7030; J7060; Q0092